=== PATIENT | female | born 1955 | race Caucasian/White ===

== ENCOUNTER 2021-07-24 03:42 | Inpatient (IN) | payer MEDICARE, OTHER ==
[~2021-07-24] VITALS: Ht 177.8 cm; Wt 68.5 kg
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
--- NOTE | 2021-07-24 04:28 | NUR ---
COVISD SWAB DONE AND SENT TO LAB
[2021-07-24 04:39] LABS: BASOPHILS % (AUTO) 0.5 % (0.0-2.0); EOSINOPHILS % (AUTO) 4.5 % (0.0-6.0); HEMATOCRIT 38 % (33-45); HEMOGLOBIN 12.6 g/dL (11.5-14.8); LYMPHOCYTES # (AUTO) 1.2 K/uL (0.8-4.8); LYMPHOCYTES % (AUTO) 22.1 % (20.0-44.0); MEAN CORPUSCULAR HGB CONC 34 g/dl (31.0-36.0); MEAN CORPUSCULAR VOLUME 96 fL (82-100); MONOCYTES # (AUTO) 0.7 K/uL (0.1-1.30); MONOCYTES % (AUTO) 13.2 % (2.0-12.0); NEUTROPHILS # (AUTO) 3.3 K/uL (1.8-8.9); NEUTROPHILS % (AUTO) 59.7 % (43.0-81.0); PLATELET COUNT (AUTO) 237 K/uL (150-450); RED BLOOD CELL COUNT(AUTO) 3.92 MIL/uL (4.0-5.2); WHITE BLOOD COUNT (AUTO) 5.6 K/uL (4.3-11.0)
[2021-07-24 04:47] LABS: CALCIUM, SERUM 8.7 mg/dL (8.5-10.1); CARBON DIOXIDE 30 mmol/L (21-32); CHLORIDE 95 mmol/L (98-107); CREATININE 0.8 mg/dL (0.6-1.3); GLUCOSE 103 mg/dL (74-106); POTASSIUM 4.1 mmol/L (3.5-5.1); SODIUM SERUM 130 mmol/L (136-145); UREA NITROGEN, BLOOD 20 mg/dL (7-18)
[2021-07-24 04:54] LABS: ALANINE AMINOTRANSFERASE 27 U/L (12-78); ALBUMIN 3.5 g/dL (3.4-5.0); ALCOHOL, BLOOD < 3 mg/dL (0-0); ALKALINE PHOSPHATASE 85 U/L (46-116); ASPARTATE AMINOTRANSFERASE 21 U/L (15-37); BILIRUBIN,DIRECT 0.1 mg/dL (0.0-0.2); BILIRUBIN,TOTAL 0.3 mg/dL (0.2-1.0); TOTAL PROTEIN, SERUM 7.5 g/dL (6.4-8.2)
[2021-07-24 04:56] LABS: ACETAMINOPHEN 0 ug/ml (10-30)
[2021-07-24 05:16] LABS: BILIRUBIN,URINE NEGATIVE (NEGATIVE); COLOR,URINE YELLOW (YELLOW); LEUKOCYTE ESTERASE ,URINE MODERATE (NEGATIVE); NITRITE, URINE POSITIVE (NEGATIVE); PROTEIN,URINE NEGATIVE (NEGATIVE); UGLUCOSE NEGATIVE (NEGATIVE); UROBILINOGEN,URINE 0.2 EU/dL (0.2)
[2021-07-24] MEDS ORDERED: NITROFURANTOIN/MONOHYDRATE MACROCRYSTALS 100 MG CAPSULE PO ONE (05:30)
[2021-07-24] MEDS ORDERED: NITROFURANTOIN/MONOHYDRATE MACROCRYSTALS 100 MG CAPSULE ONE (05:42)
[2021-07-24 06:21] LABS: BACTERIA,URINE Many /HPF (None Seen); SQUAMOUS EPITHELIAL CELL,UR Few /HPF (None Seen); WBC,URINE TOO NUMEROUS TO COUN /HPF (0-3)
[2021-07-24] MEDS ORDERED: DIVA-78 PO (07:15)
[2021-07-24] MEDS ORDERED: ARIP10TA57 PO (07:15)
[2021-07-24] MEDS ORDERED: POLY17PO4 PO (07:39)
[2021-07-24] MEDS ORDERED: AMLO10TA4 PO (07:39)
[2021-07-24] MEDS ORDERED: RISP3TAB61 PO (07:39)
[2021-07-24] MEDS ORDERED: LISI-768 PO (07:39)
[2021-07-24] MEDS ORDERED: RISP2TAB85 PO (07:39)
[2021-07-24] MEDS ORDERED: DOCU-141 PO (07:39)
[2021-07-24] MEDS ORDERED: OXCA300T15 PO (07:39)
--- NOTE | 2021-07-24 07:51 | NUR ---
ROOM GIVEN 218-B.
--- NOTE | 2021-07-24 07:55 | NUR ---
REPORT GIVEN TO AGUILA ELMORE FOR J[facility].
[2021-07-24 08:00] VITALS: BP 146/76
[2021-07-24 08:30] VITALS: BP 146/76
[2021-07-24] MEDS ORDERED: MAG HYDROX/AL HYDROX/SIMETH 30 ML UDC PO PRN (08:30)
[2021-07-24] MEDS ORDERED: BLOOD SUGAR DIAGNOSTIC 1 EACH STRIP IN ONE (08:30)
[2021-07-24] MEDS ORDERED: TEMAZEPAM 7.5 MG CAPSULE PO PRN (08:30)
[2021-07-24] MEDS ORDERED: MAGNESIUM HYDROXIDE 30 ML UDC PO PRN (08:30)
[2021-07-24] MEDS ORDERED: LORAZEPAM 0.5 MG TABLET PO PRN (08:30)
[2021-07-24] MEDS ORDERED: ACETAMINOPHEN 325 MG TABLET PO PRN (08:30)
--- NOTE | 2021-07-24 08:30 | NUR ---
GPS/RN RECEIVED PT FROM ER ON 515 FOR GD AND DTO. PT IS FROM [facility] ADMITTING ORDERS RECEVID AND CARRIED OUT. CARLOS MENDEZ MADE AWARE OF ADMISSION WELL. ON FACE TO FACE ASSESSMENT NO SI OR HI REPORTED. PT IS AMBULATORY NO DISTRESS NOTED. PROPERTY CHECKED FOR CONTRABAND.
[2021-07-24] MEDS: NICOTINE PATCH (7MG) 7 MG PATCH.TD24 TD SCH (11:03)
[2021-07-24 16:00] VITALS: BP 131/67
--- NOTE | 2021-07-24 16:07 | NUR ---
GPS/RN PT WAS NOT VACCINATED AT THE FACILITY [facility]( REFUSED) PER CHARGE NURSE [phone]. REFUSED TO TAKE MEDS THERE WELL. PT REFUSED MRSA SWAB TODAY
[2021-07-24] MEDS ORDERED: OXCARBAZEPINE 150 MG TABLET PO SCH (17:00)
[2021-07-24] MEDS: risperiDONE 1 MG TABLET PO SCH (17:00)
--- NOTE | 2021-07-24 17:27 | NUR ---
GPS/RN PT REFUSED RISPERDAL PO OFFERED X3
[2021-07-24] MEDS: DIVALPROEX SODIUM 125 MG CAP.SPRINK PO SCH (21:00)
[2021-07-24] MEDS: NITROFURANTOIN/MONOHYDRATE MACROCRYSTALS 100 MG CAPSULE PO SCH (21:20)
--- NOTE | 2021-07-24 22:00 | NUR ---
GPS RN NOTES: PT REFUSED TO TAKE DEPAKOTE DESPITE EDUCATION PROVIDED REGARDING THE RISK AND COMPLICATIONS ASSOCIATED TO NON-MED COMPLIANCE. PT CONTINUES TO REFUSE AND STATES "IF I NEED THAT MEDICATION I WILL TAKE IT, BUT I DONT" PT IS SEEN BECOMING AGITATED. WILL CONTINUE TO MONITOR PT FOR SAFETY AND CHANGES IN CURRENT CONDITION THROUGHOUT MY SHIFT.
[2021-07-25 07:37] LABS: ALBUMIN 3.2 g/dL (3.4-5.0); BILIRUBIN,TOTAL 0.4 mg/dL (0.2-1.0); CALCIUM, SERUM 8.5 mg/dL (8.5-10.1); CREATININE 0.6 mg/dL (0.6-1.3); POTASSIUM 3.8 mmol/L (3.5-5.1); TOTAL PROTEIN, SERUM 6.7 g/dL (6.4-8.2)
[2021-07-25 08:00] VITALS: BP 155/88
[2021-07-25 08:10] LABS: THYROID STIMULATING HORMONE 0.553 uIU/mL (0.358-3.74); URIC ACID 3.6 mg/dL (2.6-7.2)
[2021-07-25] MEDS: NICOTINE PATCH (7MG) 7 MG PATCH.TD24 TD SCH (09:00)
[2021-07-25] MEDS: DOCUSATE SODIUM 100 MG CAPSULE PO SCH (09:00)
[2021-07-25] MEDS: DIVALPROEX SODIUM 125 MG CAP.SPRINK PO SCH ×2 (09:00→21:00)
[2021-07-25] MEDS: LISINOPRIL (5MG) 5 MG TABLET PO SCH (09:00)
[2021-07-25] MEDS: risperiDONE 1 MG TABLET PO SCH ×2 (09:00→17:00)
[2021-07-25] MEDS: AMLODIPINE BESYLATE 10 MG TABLET PO SCH (09:00)
[2021-07-25 09:50] LABS: PHOSPHORUS 3.8 mg/dL (2.5-4.9)
[2021-07-25] MEDS: NITROFURANTOIN/MONOHYDRATE MACROCRYSTALS 100 MG CAPSULE PO SCH ×2 (10:34→21:42)
--- NOTE | 2021-07-25 10:54 | NUR ---
GPS/RN PT REFUSED MEDICATIONS SCHEDULED FOR 0900 EXCEPT MACROBID. OFFERED X3.
[2021-07-25 16:00] VITALS: BP 117/70
[2021-07-25 20:25] VITALS: BP 127/74
--- NOTE | 2021-07-25 21:46 | NUR ---
GPS RN NOTES: PATIENT REFUSED 2100 DEPAKOTE 125MG PO ORDERED. WILL CONTINUE TO MONITOR.
[2021-07-26 08:00] VITALS: BP 158/85
[2021-07-26] MEDS: LISINOPRIL (5MG) 5 MG TABLET PO SCH (09:00)
[2021-07-26] MEDS: NICOTINE PATCH (7MG) 7 MG PATCH.TD24 TD SCH (09:00)
[2021-07-26] MEDS: risperiDONE 1 MG TABLET PO SCH ×2 (09:00→17:00)
[2021-07-26] MEDS: AMLODIPINE BESYLATE 10 MG TABLET PO SCH (09:00)
[2021-07-26] MEDS: DOCUSATE SODIUM 100 MG CAPSULE PO SCH (09:00)
[2021-07-26] MEDS: DIVALPROEX SODIUM 125 MG CAP.SPRINK PO SCH ×2 (09:00→20:50)
[2021-07-26] MEDS: NITROFURANTOIN/MONOHYDRATE MACROCRYSTALS 100 MG CAPSULE PO SCH ×2 (09:36→20:57)
--- NOTE | 2021-07-26 10:28 | NUR ---
TAMMY Initial Discharge Note: Patient currently resides at [facility] located at [address] [place] [id number]; ([phone]). TAMMY reached out to Cresencio napier to see if pt is welcomed back, he stated he would reach out to this database report writer if pt is welcomed back or not. TAMMY will work with the MD and treatmen team to help coordinate appropriate discharge.
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
--- NOTE | 2021-07-26 11:45 | NUR ---
Social Work Note/Substance Abuse Intervention: Patient was provided with a brief substance abuse intervention and referred to [facility] ([phone]), [facility] ([phone]), and [facility] ([phone]) for smoking cigarettes.
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
--- NOTE | 2021-07-26 15:30 | NUR ---
BROOKS MENDEZ CONTACTED WITH URINE MICRO RESULTS. NNO GIVEN.
[2021-07-26 16:00] VITALS: BP 126/82
[2021-07-26 20:00] VITALS: BP 117/66
[2021-07-27 08:00] VITALS: BP 160/90
[2021-07-27] MEDS: risperiDONE 1 MG TABLET PO SCH ×3 (08:37→16:41)
[2021-07-27] MEDS: NITROFURANTOIN/MONOHYDRATE MACROCRYSTALS 100 MG CAPSULE PO SCH (08:37)
[2021-07-27] MEDS: DIVALPROEX SODIUM 125 MG CAP.SPRINK PO SCH ×3 (08:37→16:40)
[2021-07-27] MEDS: AMLODIPINE BESYLATE 10 MG TABLET PO SCH (08:40)
[2021-07-27] MEDS: DOCUSATE SODIUM 100 MG CAPSULE PO SCH (08:40)
[2021-07-27] MEDS: NICOTINE PATCH (7MG) 7 MG PATCH.TD24 TD SCH (08:40)
[2021-07-27] MEDS: LISINOPRIL (5MG) 5 MG TABLET PO SCH (08:40)
--- NOTE | 2021-07-27 13:04 | NUR ---
SW Note: SW spoke with patient in regards to pt's discharge plan. Patient shared that she has 0 income. SW explained patient's current condition and her apartment issue (not paying bills and possibly being evicted). Pt stated that she would want to go back to [facility].
--- NOTE | 2021-07-27 15:27 | NUR ---
SNF Contact: SW spoke with Cresencio napier from [facility] ([phone]) who stated that pt is welcomed back upon dc.
[2021-07-27 16:00] VITALS: BP 105/58
[2021-07-27 20:00] VITALS: BP 102/57
[2021-07-27] MEDS: SULFAMETH/TRIMETH 800/160 MG 1 UDTAB TABLET PO SCH (21:42)
[2021-07-28 08:00] VITALS: BP 123/72
[2021-07-28] MEDS: DIVALPROEX SODIUM 125 MG CAP.SPRINK PO SCH ×3 (08:50→16:32)
[2021-07-28] MEDS: SULFAMETH/TRIMETH 800/160 MG 1 UDTAB TABLET PO SCH ×2 (08:50→19:57)
[2021-07-28] MEDS: risperiDONE 1 MG TABLET PO SCH ×3 (08:50→16:32)
[2021-07-28] MEDS: AMLODIPINE BESYLATE 10 MG TABLET PO SCH (08:55)
[2021-07-28] MEDS: LISINOPRIL (5MG) 5 MG TABLET PO SCH (08:55)
[2021-07-28] MEDS: DOCUSATE SODIUM 100 MG CAPSULE PO SCH (08:55)
[2021-07-28] MEDS: NICOTINE PATCH (7MG) 7 MG PATCH.TD24 TD SCH (08:57)
--- NOTE | 2021-07-28 12:51 | NUR ---
TAMMY Family Contact: TAMMY received a call from patient's son George ([phone]) and he stated that he is going to be traveling and might not be able to take calls. TAMMY contacted him back and left a voicemail of pt's update.
[2021-07-28 16:00] VITALS: BP 137/73
[2021-07-28 20:00] VITALS: BP 109/62
[2021-07-29 08:00] VITALS: BP 112/69
[2021-07-29] MEDS: risperiDONE 1 MG TABLET PO SCH ×3 (08:05→16:17)
[2021-07-29] MEDS: SULFAMETH/TRIMETH 800/160 MG 1 UDTAB TABLET PO SCH ×2 (08:05→21:10)
[2021-07-29] MEDS: DIVALPROEX SODIUM 125 MG CAP.SPRINK PO SCH ×3 (08:05→16:17)
[2021-07-29] MEDS: DOCUSATE SODIUM 100 MG CAPSULE PO SCH ×2 (08:05→08:34)
[2021-07-29] MEDS: AMLODIPINE BESYLATE 10 MG TABLET PO SCH (08:05)
[2021-07-29] MEDS: NICOTINE PATCH (7MG) 7 MG PATCH.TD24 TD SCH ×2 (08:06→08:34)
[2021-07-29] MEDS: LISINOPRIL (5MG) 5 MG TABLET PO SCH (08:06)
--- NOTE | 2021-07-29 11:21 | NUR ---
TAMMY Family Contact: SW left a voicemail to patient's son George ([phone]) and notified that pt will be discharged 3/4 back to [facility].
--- NOTE | 2021-07-29 13:58 | NUR ---
Court Hearing: Patient's court hearing for 2820 was today and it was upheld for GD.
[2021-07-29 16:00] VITALS: BP 116/69
--- NOTE | 2021-07-29 19:30 | NUR ---
GPS RN NOTE, RECEIVED PATIENT AWAKE AND IN BED, NO S/S OR COMPLAINTS OF PAIN AT THIS TIME. PATIENT IS TAKING MEDICATION FOR THIS DISCOMFORT. PATIENT IS DISPLAYING NO S/S OF APPARENT DISTRESS AT THIS TIME. PATIENT BREATHING IS UNLABORED WITH EQUAL RISE AND FALL OF THE CHEST. PATIENT IS ALERT AND ORIENTED X 3 ON ROOM AIR WITH A SPO2 99%. PATIENT IS COMPLIANT WITH MEDICATIONS, CALM, POLITE, MAKES NEEDS KNOWN, AND COOPERATIVE. PATIENT DENIES SUICIDAL AND HOMICIDAL IDEATIONS AT THIS TIME. PATIENT ASSISTED WITH TURNING AND REPOSITIONING Q2HR AND PRN FOR COMFORT AND CIRCULATION. PATIENT HAS NO NEEDS AT THIS TIME. PATIENT EDUCATED ON THE USE OF THE CALL ORTEGA. PATIENT BED SIDE RAILS UP X 2 FOR SAFETY. PATIENT BED IS LOCKED, LOW, WITH BED ALARM ON. WILL CONTINUE TO MONITOR THIS PATIENT Q15 MINUTES WITH THE HELP OF STAFF TO MAINTAIN SAFETY.
[2021-07-29 20:00] VITALS: BP 100/49
[2021-07-30 08:00] VITALS: BP 140/76
--- NOTE | 2021-07-30 08:08 | NUR ---
SW Initial Discharge Plan: Patient will be discharged to longterm facility [facility] [address] [facility], [place] [address]; ). Please arrange transportation at 1PM. Customer Manager spoke with Cresencio head of strategy at [facility]; ([phone]), who stated patient will be accepted today. Patients son George ([phone]) is aware of dc. Patient is alert and oriented x3 and is unable to plan for self-care. Patient denies any suicidal or homicidal ideations. Patient is aware and agreeable with discharge plans. Patient will continue to follow-up with (psychiatrist) Dr. Edward [address], [place] [address]; ([phone]) and (compliance nurse) Dr. Arias [address], [place] [address]; ([phone]). Patient was referred to [facility] ([phone]), [facility] ([phone]), and [facility] ([phone]) for smoking cigarettes. Patient presents with euthymic and congruent mood.
[2021-07-30] MEDS: risperiDONE 1 MG TABLET PO SCH ×2 (08:17→12:30)
[2021-07-30] MEDS: LISINOPRIL (5MG) 5 MG TABLET PO SCH (08:17)
[2021-07-30] MEDS: NICOTINE PATCH (7MG) 7 MG PATCH.TD24 TD SCH ×2 (08:17→08:26)
[2021-07-30] MEDS: DIVALPROEX SODIUM 125 MG CAP.SPRINK PO SCH ×2 (08:17→12:30)
[2021-07-30 08:18] VITALS: BP 140/76
[2021-07-30] MEDS: AMLODIPINE BESYLATE 10 MG TABLET PO SCH (08:18)
[2021-07-30] MEDS: DOCUSATE SODIUM 100 MG CAPSULE PO SCH (08:18)
[2021-07-30] MEDS: SULFAMETH/TRIMETH 800/160 MG 1 UDTAB TABLET PO SCH (08:18)
--- NOTE | 2021-07-30 09:26 | NUR ---
Dr. Edward gave an order to D/C hold and D/C to [facility], to continue same meds including prn and to follow up with psych and medical doctors. Pt. without distress, denies suicidal and homicidal. Belongings ready, discharge papers ready.
--- NOTE | 2021-07-30 10:31 | NUR ---
Dr. Sheffield made aware of the discharge and reconciled the meds.
--- NOTE | 2021-07-30 11:39 | NUR ---
Report given to Jessee SHEEHAN over the facility.
--- NOTE | 2021-07-30 13:30 | NUR ---
GPS GAS STATION CLERK NOTES PATIENT IS CLEAR FOR DISCHARGE. DISCHARGE INSTRUCTIONS PROVIDED TO PATIENT. PATIENT VERBALIZED UNDERSTANDING OF TEACHING. ALL BELONGINGS ACCOUNTED FOR AND DOCUMENTS SIGNED. REPORT WAS GIVEN TO FACILITY FOR [facility]. PATIENT LEFT HOSPITAL VIA GURNEY/AMBULANCE ACCOMPANIED BY 2 EMT's.
== END 2021-07-30 13:20 | DRG 885 ==
LOC: ER 04:03 → GPS 08:04
PROVIDERS: ADMIT Psychiatry & Neurology Psychosomatic Medicine; ATTEND Nurse Practitioner Family
DX: F25.0 Schizoaffective disorder, bipolar type (principal); N39.0 Urinary tract infection, site not specified; E22.2 Syndrome of inappropriate secretion of antidiuretic hormone; G40.909 Epilepsy, unspecified, not intractable, without status epilepticus; I10 Essential (primary) hypertension; F17.210 Nicotine dependence, cigarettes, uncomplicated; F09 Unspecified mental disorder due to known physiological condition; B96.1 Klebsiella pneumoniae [K. pneumoniae] as the cause of diseases classified elsewhere; G62.9 Polyneuropathy, unspecified; E86.1 Hypovolemia; R79.89 Other specified abnormal findings of blood chemistry; F60.9 Personality disorder, unspecified; Z82.49 Family history of ischemic heart disease and other diseases of the circulatory system
CPT/HCPCS: 36415; 80048-TC; 80053-TC; 80061-TC; 80076-TC; 81001; 83735-TC; 84100-TC; 84443-TC; 84550-TC; 85025-TC; 87081-TC; 87086-TC; 87186-TC; C9803; G0480